=== PATIENT | male | born 1985 | race Caucasian/White ===

== ENCOUNTER 2017-02-06 04:33 | Emergency (ER) | payer MEDICAID ==
[~2017-02-06] VITALS: Ht 177.8 cm; Wt 77.0 kg
[2017-02-06 04:59] VITALS: Ht 177.8 cm; Wt 77.0 kg
[2017-02-06] MEDS ORDERED: IBUP-1542 PO (06:05)
[2017-02-06] MEDS ORDERED: CEPH-443 PO (06:05)
--- NOTE | 2017-02-06 06:09 | ERD ---
ER Documentation Chief Complaint Date/Time DATE: 02/06/17 TIME: 06:06 Chief Complaint Right toe injury HPI This is a 31-year-old male patient presents to the ED complaining of right toe pain that started 2 nights ago after an injury. Reports that he stubbed his right toe onto the shower edge and sustained a laceration and his nail bent inward. Denies any current pain. Denies any fever, chills, difficulty ambulating , loss of sensation, loss of range of motion, weakness, numbness or tingling. Reports that he is up-to-date with his tetanus vaccine, was up-to-date 3 years ago. ROS All systems reviewed and are negative except as per history of present illness. Medications Home Meds Active Scripts Ibuprofen* (Motrin*) 600 Mg Tab, 600 MG PO Q6, #30 TAB Prov:ISAI SUTTON PA-C 02/06/17 Cephalexin* (Keflex*) 500 Mg Capsule, 500 MG PO QID for 7 Days, CAP Prov:ISAI SUTTON PA-C 02/06/17 Allergies Allergies: Coded Allergies: No Known Allergy (Unverified , 04/20/14) PMhx/Soc History of Surgery: No Anesthesia Reaction: No Hx Neurological Disorder: No Hx Respiratory Disorders: No Hx Cardiac Disorders: No Hx Psychiatric Problems: No Hx Miscellaneous Medical Probl: No Hx Alcohol Use: No (Beer, about 3/week) Hx Substance Use: No Hx Tobacco Use: No Smoking Status: Never smoker Physical Exam Vitals Vital Signs Date Time Temp Pulse Resp B/P Pulse Ox O2 Delivery O2 Flow Rate FiO2 02/06/17 04:59 98.3 86 20 141/82 99 Physical Exam Const: Uik-kak-vzmiqltte, well-nourished. In no acute distress. Head: Atraumatic, normocephalic Eyes: Normal Conjunctiva without injection ENT: Normal external ear, nose and mouth. Neck: Full range of motion. No meningismus. Resp: Clear to auscultation bilaterally. No wheezing, rhonchi, rales, or crackles. No accessory muscle use. No retractions. Cardio: Regular rate and rhythm, no murmurs Skin: No petechiae or rashes. 2 day old 2 cm vertical laceration noted on the lateral aspect of patient's right nail bed with slightly inverted nail. No surrounding erythema, purulent discharge noted. Slightly edematous. Back: No midline tenderness. No CVA tenderness. Ext: No cyanosis, or edema. Cap refill less than 2 seconds. Distal pulses intact bilaterally. Neur: Awake and alert. Normal gait and coordination. Muscle strength 5/5. Sensation intact bilaterally. Psych: Normal Mood and Affect Procedures/MDM 31-year-old male with no significant past medical history who stubbed his right great toe onto the shower edge 2 days ago. Patient is afebrile and nontoxic- appearing. There is no indication for suturing at this time as patient's wound is 2 days old. Patient's right foot was soaked in Betadine for cleaning. A right foot x-ray was ordered to further evaluate patient. Patient is up to date with his tetanus vaccine. Patient denied wanting any pain medications. Patient is placed in a ortho boot with clean dressing applied to the affected right great toe. Crutches were given to patient to help with ambulation. Splint Assessment: Neurovascularly intact pre and post splint placement with good fit. Pending the right foot x-ray, this patient has a sign out to my colleague, Maia Hyde PA-C to rule out any fractures or dislocations. Low suspicion for compartment syndrome, neurologic injury, vascular injury, open joint, open fracture, tendon laceration, septic arthritis, osteomyelitis, DVT, foreign body , or other emergent conditions. Discharge medications: Ibuprofen, Keflex Follow up with primary care physician in 2 days for a wound check. Instructed patient to return to the ED sooner for any worsening symptoms. Patient's questions were answered. Patient understood and agreed with discharge plan. Patient discharged stable. Departure Diagnosis: Primary Impression: Injury of toe Encounter type: initial encounter Laterality: right Qualified Code: S99.921A - Injury of toe, right, initial encounter Condition: Stable Referrals: [facility] YOU HAVE RECEIVED A MEDICAL SCREENING EXAM AND THE RESULTS INDICATE THAT YOU DO NOT HAVE A CONDITION THAT REQUIRES URGENT TREATMENT IN THE EMERGENCY DEPARTMENT. FURTHER EVALUATION AND TREATMENT OF YOUR CONDITION CAN WAIT UNTIL YOU ARE SEEN IN YOUR DOCTORS OFFICE WITHIN THE NEXT 1-2 DAYS. IT IS YOUR RESPONSIBILITY TO MAKE AN APPOINTMENT FOR FOLOW-UP CARE. IF YOU HAVE A PRIMARY DOCTOR --you should call your primary doctor and schedule an appointment IF YOU DO NOT HAVE A PRIMARY DOCTOR YOU CAN CALL OUR PHYSICIAN REFERRAL HOTLINE AT IF YOU CAN NOT AFFORD TO SEE A PHYSICIAN YOU CAN CHOSE FROM THE FOLLOWING [facility] [address] [facility] [facility] [place] [address] [place] [facility] [address] [facility] [address] [facility] [address] [facility] [address] [facility]. [facility] YOU HAVE RECEIVED A MEDICAL SCREENING EXAM AND THE RESULTS INDICATE THAT YOU DO NOT HAVE A CONDITION THAT REQUIRES URGENT TREATMENT IN THE EMERGENCY DEPARTMENT. FURTHER EVALUATION AND TREATMENT OF YOUR CONDITION CAN WAIT UNTIL YOU ARE SEEN IN YOUR DOCTORS OFFICE WITHIN THE NEXT 1-2 DAYS. IT IS YOUR RESPONSIBILITY TO MAKE AN APPOINTMENT FOR FOLOW-UP CARE. IF YOU HAVE A PRIMARY DOCTOR --you should call your primary doctor and schedule and appointment IF YOU DO NOT HAVE A PRIMARY DOCTOR YOU CAN CALL OUR PHYSICIAN REFERRAL HOTLINE AT . IF YOU CAN NOT AFFORD TO SEE A PHYSICIAN YOU CAN CHOSE FROM THE FOLLOWING [facility] INSTITUTIONS: [facility] [address] [place] [address] [facility] [address] [place] [address] [facility] [address] [place] [address] [facility] URGENT CARE/SPECIALTIES Additional Instructions: FOLLOW UP WITH YOUR PRIMARY CARE PHYSICIAN TOMORROW.Return to this facility if you are not improving as expected. ISAI SUTTON PA-C Feb 06, 2017 06:09
--- NOTE | 2017-02-06 06:34 | RADRPT ---
PROCEDURE: RIGHT FOOT - 3 VIEWS CLINICAL INDICATION: 31-year-old male with right great toe injury. TECHNIQUE: AP, lateral and oblique views of the right foot was obtained. The images were reviewed on a PACS workstation. COMPARISON: None. FINDINGS: The bones of the right foot appear intact, with no evidence of fracture, dislocation, or subluxation . The joint spaces are preserved. Bone mineralization is within normal limits. No radiopaque foreig n body is seen. IMPRESSION: Unremarkable right foot radiographs. .Winston Russell MD, MD Date Time Electronically viewed and signed by .Winston Russell MD, on 02/06/2017 06:34 .M/
--- NOTE | 2017-02-06 06:39 | EN ---
Date/Time of Note Date/Time of Note DATE: 02/06/17 TIME: 06:38 ER Progress Note This patient was signed out to me by Isai Chávez PA-C pending results of x-rays. Per the radiology report images of the right foot are unremarkable. Patient symptoms at this time is consistent with contusion and laceration. Any further documentation will be completed by Isai Chávez. Patient will be discharged with Keflex and Motrin as well as an orthosis you and crutches to help ambulate DIAGNOSTIC IMAGING REPORT Patient: MARISABEL CARVAJAL : 1985 Age: 31 Sex: M MR #: [id number] DOS: 02/06/17 0509 Ordering MD: ISAI CHÁVEZ PA-C Location: [facility] Room/Bed: PROCEDURE: RIGHT FOOT - 3 VIEWS CLINICAL INDICATION: 31-year-old male with right great toe injury. TECHNIQUE: AP, lateral and oblique views of the right foot was obtained. The images were reviewed on a PACS workstation. COMPARISON: None. FINDINGS: The bones of the right foot appear intact, with no evidence of fracture, dislocation, or subluxation. The joint spaces are preserved. Bone mineralization is within normal limits. No radiopaque foreign body is seen. IMPRESSION: Unremarkable right foot radiographs. .Winston Russell MD, MD Date Time Electronically viewed and signed by .Winston Russell MD, MD on 02/06/2017 06:34 .M/ CC: ISAI CHÁVEZ PA-C, DEBORAH M. PA-C Feb 06, 2017 06:39
== END 2017-02-06 06:45 | disposition home or self-care (01) ==
LOC: FTE 04:33
DX: S99.921A Unspecified injury of right foot, initial encounter (principal); W22.8XXA Striking against or struck by other objects, initial encounter; Y92.9 Unspecified place or not applicable
CPT/HCPCS: 73630; Z7502

== ENCOUNTER 2017-08-16 22:47 | Emergency (ER) | payer SELFPAY ==
[~2017-08-16] VITALS: Ht 170.2 cm; Wt 72.5 kg
[~2017-08-16 22:47] MED LIST: CEPH-443 PO; IBUP-1542 PO
[2017-08-16 23:02] VITALS: Ht 170.2 cm; Wt 72.5 kg
[2017-08-17] MEDS ORDERED: LIDOCAINE 1% (MDV) 10 ML INJ INJ STA (00:10)
--- NOTE | 2017-08-17 00:21 | ERD ---
ER Documentation Chief Complaint Date/Time DATE: 08/17/17 TIME: 00:18 Chief Complaint Lac to Lt index finger s/p cut at work 1 hour [employer]. Tetanus 3 years ago HPI Patient is a 31-year-old male who presents with laceration to his left second finger that he sustained today with a knife in the kitchen on accident. He is tetanus is up-to-date as he has got one within the last 3 years. No numbness or tingling. No possibility retained foreign body. No loss of range of motion. Pain is moderate throbbing in nature at the site of the laceration. ROS All systems reviewed and are negative except as per history of present illness. Medications Home Meds Active Scripts Ibuprofen* (Motrin*) 600 Mg Tab, 600 MG PO Q6, #30 TAB Prov:ISAI SUTTON PA-C 02/06/17 Cephalexin* (Keflex*) 500 Mg Capsule, 500 MG PO QID for 7 Days, CAP Prov:ISAI SUTTON PA-C 02/06/17 Allergies Allergies: Coded Allergies: No Known Allergy (Unverified , 04/20/14) PMhx/Soc Medical and Surgical Hx: pt denies Medical Hx, pt denies Surgical Hx History of Surgery: No Anesthesia Reaction: No Hx Neurological Disorder: No Hx Respiratory Disorders: No Hx Cardiac Disorders: No Hx Psychiatric Problems: No Hx Miscellaneous Medical Probl: No Hx Alcohol Use: Yes (Beer, about 3/week) Hx Substance Use: No Hx Tobacco Use: No Smoking Status: Never smoker Physical Exam Vitals Vital Signs Date Time Temp Pulse Resp B/P Pulse Ox O2 Delivery O2 Flow Rate FiO2 08/16/17 23:02 98.2 79 18 138/90 100 Physical Exam Const: [] Head: Atraumatic Eyes: Normal Conjunctiva Neck: Full range of motion..~ No meningismus. Resp: Clear to auscultation bilaterally Cardio: Regular rate and rhythm, no murmurs Skin: Pad surface of the distal second digit on the left hand there is a C- shaped laceration approximately 2-3 cm in length, he has full extension and flexion in the finger in each interphalangeal joint against resistance, capillary refill less than 2 seconds, no bony abnormalities, no evidence of retained foreign body Results 24 hrs Current Medications Medications (Trade) Dose Ordered Sig/Elfego Route PRN Reason Start Time Stop Time Status Last Admin Dose Admin Lidocaine HCl (Lidocaine 1% (Mdv) 10 ml) 10 ml ONCE STAT INJ 08/17/17 00:10 08/17/17 00:11 DC Procedures/MDM The skin edges of the laceration were infiltrated with 1% lidocaine . The laceration was irrigated with copious amounts of normal saline. The wound was prepped with Betadine. On examination under direct light, there was no foreign body seen. The laceration was repaired with simple interrupted sutures. After repair, there was no continuing bleeding on repair and there did not appear to be any complication related to repair. The patient tolerated the procedure well and the wound was appropriately dressed and bandaged. I recommended the patient return in 2 days for a wound check and 7-10 days for removal of sutures. Patient has full range of motion in the finger against resistance in each interphalangeal joint in both extension and flexion and therefore have a low suspicion for any tendon injury. Patient counseled regarding my diagnostic impression and care plan. Prior to discharge all questions answered. Pt agrees with treatment plan and understands strict return precautions. Pt is instructed to follow up with primary care provider within 24- 48 hours. Precautionary instructions provided including instructions to return to the ER if not improving or for any worsening or changing symptoms or concerns. Departure Diagnosis: Primary Impression: Laceration Condition: Stable JANIS ZHONG PA-C Aug 17, 2017 00:20
== END 2017-08-17 01:25 | disposition home or self-care (01) ==
LOC: FTE 22:47
DX: S61.311A Laceration without foreign body of left index finger with damage to nail, initial encounter (principal); W26.0XXA Contact with knife, initial encounter; Y92.000 Kitchen of unspecified non-institutional (private) residence as the place of occurrence of the external cause

== ENCOUNTER 2017-08-25 11:31 | Emergency (ER) | payer SELFPAY ==
[~2017-08-25] VITALS: Ht 180.3 cm; Wt 73.5 kg
[2017-08-25 11:35] VITALS: Ht 180.3 cm; Wt 73.5 kg
== END 2017-08-25 13:31 | disposition left against medical advice (07) ==
LOC: FTE 11:31
DX: Z53.21 Procedure and treatment not carried out due to patient leaving prior to being seen by health care provider (principal)